=== PATIENT | female | born 1940 | race Caucasian/White ===

== ENCOUNTER → 2021-12-01 10:18 | Outpatient (BNVA) | payer BC, SELFPAY | PROVIDERS: PCP Internal Medicine Endocrinology, Diabetes & Metabolism; Visit Provider Surgery ==

== ENCOUNTER 2022-12-10 09:53 | Outpatient (REF) | payer MEDICARE, SELFPAY ==
--- NOTE | ~2022-12-10 | XR_ITS ---
EXAMINATION: XR ABDOMEN COMPLETE CLINICAL INDICATION: Constipation COMPARISON: CT 04/27/2018 TECHNIQUE: 2 views of the abdomen. FINDINGS: Nonobstructive bowel gas pattern. Gas and stool throughout the colon with moderate colonic stool burden. Stool in the rectum. The lung bases are clear. Prominent scoliotic curvature of the spine. XR/XR abdomen 3V IMPRESSION: Moderate colonic stool burden.
== END 2022-12-10 09:54 | disposition home or self-care (01) ==
LOC: HO.XRAY 09:53
PROVIDERS: PCP Internal Medicine Endocrinology, Diabetes & Metabolism; Visit Provider Surgery
DX: K59.00 Constipation, unspecified (principal); K43.2 Incisional hernia without obstruction or gangrene
CPT/HCPCS: 74021; 99212

== ENCOUNTER → 2023-01-21 11:26 | Outpatient (BNVA) | payer MEDICARE, SELFPAY | PROVIDERS: PCP Internal Medicine Endocrinology, Diabetes & Metabolism; Visit Provider Surgery | DX: K43.2 Incisional hernia without obstruction or gangrene (principal); M79.605 Pain in left leg; R10.32 Left lower quadrant pain | CPT/HCPCS: 99212 ==

== ENCOUNTER 2023-02-03 08:59 | Outpatient (REF) | payer MEDICARE, SELFPAY ==
--- NOTE | ~2023-02-03 | CT_ITS ---
EXAMINATION: CT PELVIS WITHOUT CONTRAST CLINICAL INFORMATION: Left hip and groin pain. Left lower quadrant pain. COMPARISON: None available. TECHNIQUE: Helical scanning was performed with submillimeter collimation through the pelvis. Sagittal and coronal multiplanar 2-D reconstructions were obtained. This CT examination was performed using dose optimization techniques as appropriate, variously including the following: *Automated exposure control *Adjustment of mA and/or kV according to patient size (this includes techniques or standardized protocols for targeted exams where dose is matched to indication/reason for exam; i.e. extremities or head) *Use of iterative reconstruction technique DLP: 392 mGy-cm FINDINGS: PELVIS: There is scattered stool and gas seen throughout the colon without significant distention. There are annular sutures involving sigmoid colon with widely patent lumen. There is a nonspecific mural thickening involving a loop of small bowel in the upper pelvis on axial image . This is incompletely visualized. No free air or free fluid is seen. The bladder is nondistended. The uterus is atrophied or surgically absent. No adnexal mass. No abnormal inguinal lymph nodes. There is no evidence of hernia. There are degenerative disc changes at L4-L5 and L5-S1 disc levels with vacuum disc phenomena. There is grade 1 anterolisthesis at L5 over S1. No aggressive lytic or sclerotic process is seen. CT/CT pelvis wo IV con IMPRESSION: Moderate constipation. There is mild annular thickening involving small bowel which is incompletely visualized in the upper midline pelvis. Otherwise the rest of the CT pelvis is unremarkable.
== END 2023-02-03 09:00 | disposition home or self-care (01) ==
LOC: HO.CT 08:59
PROVIDERS: Visit Provider Surgery
DX: R10.32 Left lower quadrant pain (principal); M79.605 Pain in left leg
CPT/HCPCS: 72192

== ENCOUNTER → 2023-02-08 14:58 | Outpatient (BNVA) | payer MEDICARE, SELFPAY | PROVIDERS: PCP Internal Medicine Endocrinology, Diabetes & Metabolism; Visit Provider Surgery | DX: M79.605 Pain in left leg (principal); R10.32 Left lower quadrant pain; K59.00 Constipation, unspecified | CPT/HCPCS: 99212 ==